=== PATIENT | male | born 2000 | race Hispanic/Latino ===

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

== ENCOUNTER 2021-12-05 04:39 | Emergency (ER) | payer SELFPAY ==
--- NOTE | 2021-12-05 07:10 | ER ---
Nurse's Notes [facility] Name: Yariel Mcdonald Age: 21 yrs Sex: Male : 2000 Arrival Date: 12/05/2021 Time: 04:49 Bed 24 Private MD: Diagnosis: Acute serous otitis media, bilateral Presentation: 12/05 06:10 Chief complaint: Patient states: C/o right and left ear pain 8/10, sore throat, nasal ll3 congestion. Coronavirus screen: Vaccine status: Patient reports being unvaccinated. congestion, sore throat. Ebola Screen: No symptoms or risks identified at this time. Initial Sepsis Screen: Does the patient meet any 2 criteria? No. Patient's initial sepsis screen is negative. Does the patient have a suspected source of infection? No. Patient's initial sepsis screen is negative. Risk Assessment: Do you want to hurt yourself or someone else? Patient reports no desire to harm self or others. Onset of symptoms is unknown. 06:10 Method Of Arrival: Ambulatory ll3 06:10 Acuity: LINDA 3 ll3 Triage Assessment: 06:12 General: Appears uncomfortable, Behavior is calm, cooperative, crying. Pain: Complains ll3 of pain in right ear and left ear Pain currently is 8 out of 10 on a pain scale. Pain began 4 hours ago. EENT: Reports nasal congestion pain in left ear and right ear when swallowing. Neuro: No deficits noted. Respiratory: Respiratory effort is even, unlabored, Respiratory pattern is regular, symmetrical. Derm: Skin is pink, warm \T\ dry. Historical: - Allergies: 06:12 No Known Allergies; ll3 - Home Meds: 06:12 None [Active]; ll3 - PMHx: 06:12 None; ll3 - PSHx: 06:12 None; ll3 - Immunization history:: Client reports having NOT received the Covid vaccine. - Social history:: Smoking status: Patient denies any tobacco usage or history of. Screenin:14 Abuse screen: Denies threats or abuse. Nutritional screening: No deficits noted. ll3 Tuberculosis screening: No symptoms or risk factors identified. Assessment: 06:14 General: See triage assessment. ll3 Vital Signs: 06:10 BP 127 / 103; Pulse 69; Resp 16; Temp 98.0(TE); Pulse Ox 100% on R/A; ll3 ED Course: 04:49 Patient arrived in ED. bp1 06:10 Kp Perry, RN is Primary Nurse. ll3 06:12 Triage completed. ll3 06:12 Arm band placed on Patient placed in an exam room, on a stretcher, on pulse oximetry. ll3 06:14 Patient has correct armband on for positive identification. Bed in low position. Call ll3 light in reach. Side rails up X 1. Adult w/ patient. 06:59 Troy Hamilton MD is Attending Physician. kdr Administered Medications: 07:42 Drug: Amoxicillin 500 mg Route: PO; ss 07:45 Follow up: Response: Medication administered at discharge. ss 07:43 Drug: Acetaminophen-Codeine (300 mg-30 mg) 1 tablet Route: PO; ss 07:45 Follow up: Response: Medication administered at discharge. ss 07:45 Not Given (Pt did not want to wait any longer for medication to come from pharmacyy): Pseudoephedrine 60 mg PO once Medication: 06:14 VIS not applicable for this client. ll3 Outcome: 07:10 Discharge ordered by . kdr 07:46 Patient left the ED. ss Signatures: Troy Hamilton MD MD kdr Buffy Dawkins RN RN Marguerite Bosch bp1 Kp Perry, ZARINA RN ll3
--- NOTE | 2021-12-05 07:10 | EDPHYS ---
Physician Documentation [facility] Name: Yariel Mcdonald Age: 21 yrs Sex: Male : 2000 Arrival Date: 12/05/2021 Time: 04:49 Bed 24 Private MD: ED Physician Troy Hamilton HPI: 12/05 08:39 This 21 yrs old Male presents to ER via Ambulatory with complaints of Ear Pain.kdr 08:39 The patient presents with pain. The complaints affect the left ear and right ear. kdr Onset: The symptoms/episode began/occurred gradually, 3 day(s) ago. Modifying factors: The symptoms are alleviated by nothing, the symptoms are aggravated by nothing. Associated signs and symptoms: Pertinent positives: sore throat, cough, rhinorrhea. Severity of symptoms: At their worst the symptoms were mild in the emergency department the symptoms are unchanged. The patient has not experienced similar symptoms in the past. The patient has not recently seen a physician. Historical: - Allergies: 06:12 No Known Allergies; ll3 - Home Meds: 06:12 None [Active]; ll3 - PMHx: 06:12 None; ll3 - PSHx: 06:12 None; ll3 - Immunization history:: Client reports having NOT received the Covid vaccine. - Social history:: Smoking status: Patient denies any tobacco usage or history of. ROS: 08:39 Constitutional: Negative for fever, chills, and weight loss, Eyes: Negative for injury, kdr pain, redness, and discharge, Neck: Negative for injury, pain, and swelling, Cardiovascular: Negative for chest pain, palpitations, and edema, Respiratory: Negative for shortness of breath, cough, wheezing, and pleuritic chest pain, Abdomen/GI: Negative for abdominal pain, nausea, vomiting, diarrhea, and constipation, Back: Negative for injury and pain, : Negative for injury, bleeding, discharge, and swelling, MS/Extremity: Negative for injury and deformity, Skin: Negative for injury, rash, and discoloration, Neuro: Negative for headache, weakness, numbness, tingling, and seizure activity. Psych: Negative for depression, anxiety, suicide ideation, homicidal ideation, and hallucinations, Allergy/Immunology: Negative for hives, rash, and allergies, Endocrine: Negative for neck swelling, polydipsia, polyuria, polyphagia, and marked weight changes, Hematologic/Lymphatic: Negative for swollen nodes, abnormal bleeding, and unusual bruising. 08:39 ENT: Positive for ear pain, nasal discharge, rhinorrhea, sore throat. Exam: 08:39 Constitutional: This is a well developed, well nourished patient who is awake, alert, kdr and in no acute distress. Head/Face: Normocephalic, atraumatic. Eyes: Pupils equal round and reactive to light, extra-ocular motions intact. Lids and lashes normal. Conjunctiva and sclera are non-icteric and not injected. Cornea within normal limits. Periorbital areas with no swelling, redness, or edema. Neck: Trachea midline, no thyromegaly or masses palpated, and no cervical lymphadenopathy. Supple, full range of motion without nuchal rigidity, or vertebral point tenderness. No Meningismus. Chest/axilla: Normal chest wall appearance and motion. Nontender with no deformity. No lesions are appreciated. Cardiovascular: Regular rate and rhythm with a normal S1 and S2. No gallops, murmurs, or rubs. Normal PMI, no JVD. No pulse deficits. Respiratory: Lungs have equal breath sounds bilaterally, clear to auscultation and percussion. No rales, rhonchi or wheezes noted. No increased work of breathing, no retractions or nasal flaring. Abdomen/GI: Soft, non-tender, with normal bowel sounds. No distension or tympany. No guarding or rebound. No evidence of tenderness throughout. Back: No spinal tenderness. No costovertebral tenderness. Full range of motion. Skin: Warm, dry with normal turgor. Normal color with no rashes, no lesions, and no evidence of cellulitis. MS/ Extremity: Pulses equal, no cyanosis. Neurovascular intact. Full, normal range of motion. Neuro: Awake and alert, GCS 15, oriented to person, place, time, and situation. Cranial nerves II-XII grossly intact. Motor strength 5/5 in all extremities. Sensory grossly intact. Cerebellar exam normal. Normal gait. Psych: Awake, alert, with orientation to person, place and time. Behavior, mood, and affect are within normal limits. 08:39 ENT: External ear(s): are unremarkable, Ear canal(s): are normal, TM's: dullness, erythema, that is moderate, bilaterally, loss of bony landmarks, bilaterally. Vital Signs: 06:10 BP 127 / 103; Pulse 69; Resp 16; Temp 98.0(TE); Pulse Ox 100% on R/A; ll3 MDM: 07:10 Patient medically screened. kdr 08:39 Data reviewed: vital signs, nurses notes. Counseling: I had a detailed discussion with kdr the patient and/or guardian regarding: the historical points, exam findings, and any diagnostic results supporting the discharge/admit diagnosis, the need for outpatient follow up. Administered Medications: 07:42 Drug: Amoxicillin 500 mg Route: PO; ss 07:45 Follow up: Response: Medication administered at discharge. ss 07:43 Drug: Acetaminophen-Codeine (300 mg-30 mg) 1 tablet Route: PO; ss 07:45 Follow up: Response: Medication administered at discharge. ss 07:45 Not Given (Pt did not want to wait any longer for medication to come from pharmacyy): ss Pseudoephedrine 60 mg PO once Disposition Summary: 12/05/21 07:10 Discharge Ordered Location: Home kdr Problem: new kdr Symptoms: have improved kdr Condition: Stable kdr Diagnosis - Acute serous otitis media, bilateral kdr Followup: kdr - With: Private Physician - When: 2 - 3 days - Reason: If symptoms return, Further diagnostic work-up, Recheck today's complaints, Continuance of care, Re-evaluation by your physician Discharge Instructions: - Discharge Summary Sheet kdr - Otitis Media, Adult, [id number] kdr Forms: - Medication Reconciliation Form kdr - Thank You Letter kdr - Antibiotic Education kdr - Prescription Opioid Use kdr - Work release form Prescriptions: - pseudoephedrine HCl 60 mg Oral tablet - take 1 tablet by ORAL route every 6 hours As needed; 16 tablet; Refills: 0, kdr Product Selection Permitted - Amoxicillin 500 mg Oral Capsule - take 1 capsule by ORAL route every 8 hours for 10 days; 30 tablet; Refills: 0, kdr Product Selection Permitted - Tramadol 50 mg Oral Tablet - take 1 tablet by ORAL route every 8 hours As needed as needed; 6 tablet; kdr Refills: 0, Product Selection Permitted Signatures: Troy Hamilton MD MD kdr Buffy Dawkins RN RN Kp Perry RN RN ll3
[2021-12-05] MEDS ORDERED: AMOXICILLIN TRIHYDR 250 MG CAP ONE (07:46)
[2021-12-05] MEDS ORDERED: CODEINE 30MG/APAP 300MG TAB ONE (07:47)
[2021-12-05 07:51] VITALS: BP 127/103; TEMP 98; O2SAT 100
[2021-12-05] MEDS ORDERED: PSEUDOEPHEDRINE 30 MG TAB PO ONE (09:00)
== END 2021-12-05 07:46 | disposition home or self-care (01) ==
LOC: ER 04:39
DX: H65.03 Acute serous otitis media, bilateral (principal)
CPT/HCPCS: 99283

== ENCOUNTER → 2023-09-21 | Emergency (ER) | payer SELFPAY ==
[~2023-09-21] MED LIST: LIDOCAINE 1% MPF 5 ML VIAL ONE; TDAP (DIPHTH,PERTUSS(ACELL),TET VAC) 0.5 ML VIAL IMVAC ONE
--- NOTE | 2023-09-21 20:40 | EDPHYS ---
Physician Documentation [facility] Name: Yariel Mcdonald Age: 22 yrs Sex: Male : 2000 Arrival Date: 09/21/2023 Time: 20:05 Bed 9 Private MD: ED Physician Latasha Alcazar HPI: 09/20 20:40 This 22 yrs old Male presents to ER via Ambulatory with complaints of Finger kb Injury. 20:40 Patient is a 22-year-old male who presents for laceration to left index finger that was kb sustained while cutting an avocado just prior to arrival.. Historical: - Allergies: 20:21 No Known Allergies; cm10 - Home Meds: 20:21 None [Active]; cm10 - PMHx: 20:21 None; cm10 - PSHx: 20:21 None; cm10 - Immunization history:: Adult Immunizations up to date, Last tetanus immunization: unknown. - Social history:: Smoking status: Patient denies any tobacco usage or history of. ROS: 20:40 Constitutional: As per HPI kb Exam: 20:40 Constitutional: This is a well developed, well nourished patient who is awake, alert, kb and in no acute distress. Head/Face: Normocephalic, atraumatic. ENT: Moist Mucous membranes Cardiovascular: Regular rate Respiratory: Respirations even and unlabored. No increased work of breathing. Talking in full sentences MS/ Extremity: Pulses equal, no cyanosis. Neurovascular intact. Full, normal range of motion. Neuro: Awake and alert, GCS 15, oriented to person, place, time, and situation. Moves all extremities. Normal gait. 20:40 Skin: injury, laceration(s), the wound is approximately 1 cm(s), of the palmar aspect of middle phalanx of left index finger, that can be described as clean, no foreign body, linear, without bleeding, Vital Signs: 20:20 BP 128 / 68; Pulse 71; Resp 16; Temp 97.3; Pulse Ox 98% on R/A; Weight 104.33 kg; cm10 Height 5 ft. 5 in. ; Pain 1/10; 20:20 Body Mass Index 38.27 (104.33 kg, 165.1 cm) cm10 20:20 Pain Scale: Adult cm10 Laceration: 20:38 Wound Repair of 1cm ( 0.4in ) subcutaneous laceration to palmar aspect of middle kb phalanx of left index finger. Linear shaped.. Distal neuro/vascular/tendon intact. Anesthesia: Wound infiltrated with 1 mls of 1% lidocaine. Wound prep: Moderate cleansing with hibiclenz by me, Wound irrigation with saline by me. Skin closed with 3 5-0 Prolene using simple sutures and sterile technique. Patient tolerated well. MDM: 20:15 Patient medically screened. kb 20:39 Data reviewed: vital signs, nurses notes. kb 20:39 Differential diagnosis: superficial laceration, tendon injury, vascular injury. kb Counseling: I had a detailed discussion with the patient and/or guardian regarding the historical points, exam findings, and any diagnostic results supporting the discharge/admit diagnosis, the need for outpatient follow up, a family practitioner, to return to the emergency department if symptoms worsen or persist or if there are any questions or concerns that arise at home. 09/20 20:22 Order name: Dressing - Wound; Complete Time: 20:29 kb 09/20 20:22 Order name: Gloves, Sterile; Complete Time: 20:29 kb 09/20 20:22 Order name: Prolene, Sutures; Complete Time: 20:29 kb 09/20 20:22 Order name: Setup Suture Tray; Complete Time: 20:29 kb Administered Medications: 20:28 Drug: Lidocaine Infiltration (1 %) 1 vials 5 ml Infiltration once; to bedside {Note: jb4 Administered via ER provider.} Volume: 5 ml; Route: Infiltration; 20:29 Drug: Boostrix Tdap IM 0.5 ml IM once; as a single dose Route: IM; Site: left deltoid; jb4 Disposition Summary: 09/21/23 20:39 Discharge Ordered Notes: Location: Home kb Condition: Stable kb Diagnosis - Laceration without foreign body of left index finger without damage to nail kb Followup: kb - With: Emergency Department - When: As needed - Reason: Worsening of condition Followup: kb - With: Private Physician - When: 2 - 3 days - Reason: Recheck today's complaints, Continuance of care, Re-evaluation by your physician Discharge Instructions: - Discharge Summary Sheet kb - Laceration Care, Adult, [id number] kb Forms: - Medication Reconciliation Form kb - Thank You Letter kb - Antibiotic Education kb - Prescription Opioid Use kb - Patient Portal Instructions kb - Leadership Thank You Letter kb Signatures: Aicha Ventura FNP-C FNP-Blue Brooks, RN RN jb4 Izzy Lindsay RN RN cm10
--- NOTE | 2023-09-21 20:40 | ER ---
Nurse's Notes [facility] Name: Yariel Mcdonald Age: 22 yrs Sex: Male : 2000 Arrival Date: 09/21/2023 Time: 20:05 Bed 9 Private MD: Diagnosis: Laceration without foreign body of left index finger without damage to nail Presentation: 09/20 20:20 Chief complaint: Patient states: Laceration to index finger of left hand. pt states cm10 that he cut himself with a knife. Bleeding controlled at this time. Coronavirus screen: Client denies travel out of the [place] in the last 14 days. At this time, the client does not indicate any symptoms associated with coronavirus-19. Ebola Screen: Patient denies travel to an Ebola-affected area in the 21 days before illness onset. No symptoms or risks identified at this time. Initial Sepsis Screen: Does the patient meet any 2 criteria? No. Patient's initial sepsis screen is negative. Does the patient have a suspected source of infection? No. Patient's initial sepsis screen is negative. Risk Assessment: Do you want to hurt yourself or someone else? Patient reports no desire to harm self or others. Onset of symptoms was September 21, 2023. 20:20 Method Of Arrival: Ambulatory cm10 20:20 Acuity: LINDA 4 cm10 Triage Assessment: 20:21 General: Appears in no apparent distress. comfortable, Behavior is calm, cooperative. cm10 Pain: Complains of pain in palmar aspect of proximal phalanx of left index finger Pain does not radiate. Pain currently is 1 out of 10 on a pain scale. Neuro: No deficits noted. Level of Consciousness is awake, alert, obeys commands, Oriented to person, place, time, situation. Respiratory: No deficits noted. Airway is patent Respiratory effort is even, unlabored, Respiratory pattern is regular, symmetrical. 20:22 Injury Description: Laceration sustained to palmar aspect of proximal phalanx of left cm10 index finger is clean, 0.5 to 2.5 cm long, not bleeding, was sustained 30-60 minutes ago. a small amount of bleeding noted at this time. Historical: - Allergies: 20:21 No Known Allergies; cm10 - Home Meds: 20:21 None [Active]; cm10 - PMHx: 20:21 None; cm10 - PSHx: 20:21 None; cm10 - Immunization history:: Adult Immunizations up to date, Last tetanus immunization: unknown. - Social history:: Smoking status: Patient denies any tobacco usage or history of. Screenin:53 [facility] ED Fall Risk Assessment (Adult) History of falling in the last 3 months, jb4 including since admission No falls in past 3 months (0 pts) Confusion or Disorientation No (0 pts) Intoxicated or Sedated No (0 pts) Impaired Gait No (0 pts) Mobility Assist Device Used No (0 pt) Altered Elimination No (0 pt) Score/Fall Risk Level 0 - 2 = Low Risk Oriented to surroundings, Maintained a safe environment. Abuse screen: Denies threats or abuse. Nutritional screening: No deficits noted. Tuberculosis screening: No symptoms or risk factors identified. Assessment: 20:33 General: Appears in no apparent distress. comfortable, Behavior is calm, appropriate jb4 for age. Pain: Denies pain. Neuro: Level of Consciousness is awake, alert, obeys commands, Oriented to person, place, time, situation. Cardiovascular: Patient's skin is warm and dry. Respiratory: Airway is patent Respiratory effort is even, unlabored, Respiratory pattern is regular, symmetrical. GI: No signs and/or symptoms were reported involving the gastrointestinal system. : No signs and/or symptoms were reported regarding the genitourinary system. EENT: No signs and/or symptoms were reported regarding the EENT system. Derm: Skin is intact, Skin is pink, warm \T\ dry. Musculoskeletal: Circulation, motion, and sensation intact. Range of motion: intact in all extremities. Injury Description: Laceration sustained to palmar aspect of middle phalanx of left index finger. 20:53 Reassessment: Patient appears in no apparent distress at this time. Patient and/or jb4 family updated on plan of care and expected duration. Pain level reassessed. Patient is alert, oriented x 3, equal unlabored respirations, skin warm/dry/pink. Vital Signs: 20:20 BP 128 / 68; Pulse 71; Resp 16; Temp 97.3; Pulse Ox 98% on R/A; Weight 104.33 kg; cm10 Height 5 ft. 5 in. ; Pain 1/; 20:20 Body Mass Index 38.27 (104.33 kg, 165.1 cm) cm10 20:20 Pain Scale: Adult cm10 ED Course: 20:07 Patient arrived in ED. jj6 20:15 Aich[facility] Vent[facility]C [facility] kb 20:15 Latasha Alcazar is Attending Physician. kb 20:21 Triage completed. cm10 20:22 Arm band placed on Patient placed in waiting room. cm10 20:53 Patient has correct armband on for positive identification. Bed in low position. Call jb4 light in reach. Side rails up X 1. Provided Education on: Wound care. 20:53 Assist provider with laceration repair on palmar aspect of middle phalanx of left index jb4 finger. Patient did not have IV access during this emergency room visit. Administered Medications: 20:28 Drug: Lidocaine Infiltration (1 %) 1 vials 5 ml Infiltration once; to bedside {Note: jb4 Administered via ER provider.} Volume: 5 ml; Route: Infiltration; 20:29 Drug: Boostrix Tdap IM 0.5 ml IM once; as a single dose Route: IM; Site: left deltoid; jb4 Medication: 20:30 Vaccine Information Statement (VIS) provided today. Questions and/or concerns jb4 addressed. VIS edition date: February 09, 2021. Outcome: 20:39 Discharge ordered by . kb 20:53 Discharged to home ambulatory, with family, jb4 20:53 Condition: stable 20:53 Discharge instructions given to patient, Instructed on discharge instructions, follow up and referral plans. wound care, Demonstrated understanding of instructions, follow-up care, wound care, 20:55 Patient left the ED. jb4 Signatures: Aicha Ventura FNP-C FNP-Blue Brooks, RN RN jb4 Avani Bernal jj6 Izzy Lindsay, RN RN cm10
[2023-09-21 21:22] VITALS: BP 128/68; TEMP 97.3; O2SAT 98
== END ==
LOC: ER 20:05
PROC: 0HQGXZZ Repair Left Hand Skin, External Approach (ICD-10-PCS; principal; 2023-09-21)
DX: S61.211A Laceration without foreign body of left index finger without damage to nail, initial encounter (principal)
CPT/HCPCS: 96372; 99284; J2001